=== PATIENT | female | born 2000 | race Caucasian/White ===

== ENCOUNTER 2022-11-21 00:35 | Emergency (ER) | payer OTHER ==
[~2022-11-21] VITALS: Ht 157.5 cm; Wt 80.2 kg
[2022-11-21] MEDS ORDERED: SODIUM CHLORIDE 0.9% 1,000 ML IV ONE (01:15)
[2022-11-21 01:16] LABS: CLARITY URINE CLOUDY (CLEAR); COLOR URINE DARK YELLOW (YELLOW); KETONES URINE TRACE (NEGATIVE); LEUKOCYTE ESTERASE URINE TRACE (NEGATIVE); NITRITE URINE NEGATIVE (NEGATIVE); OCCULT BLOOD URINE 3+ (NEGATIVE); PROTEIN URINE 2+ (NEGATIVE); SPECIFIC GRAVITY URINE 1.033 (1.005-1.030)
[2022-11-21 01:40] LABS: BASOPHILS % 0.1 % (0.0-2.0); EOSINOPHILS % 0.2 % (0.0-5.0); HEMATOCRIT. 38.8 % (36.0-48.0); HEMOGLOBIN. 12.5 g/dL (12.0-16.0); LYMPHOCYTES % 22.1 % (20.0-50.0); MEAN CORPUSCULAR HEMOGLOBIN 24.3 pg (28.0-32.0); MEAN CORPUSCULAR VOLUME 75.3 fL (81.0-99.0); MEAN PLATELET VOLUME 8.9 fl (7.4-10.4); MONOCYTES % 10.2 % (2.0-8.0); NEUTROPHILS % 67.4 % (40.0-76.0); PLATELET 270 x1000/uL (130-400); RED BLOOD CELL COUNT 5.16 mill/uL (4.2-5.4); RED CELL DISTRIBUTION WIDTH 17.9 % (11.6-14.6)
[2022-11-21 01:53] LABS: CHLORIDE 105 mEq/L (98-107)
[2022-11-21] MEDS ORDERED: ONDANSETRON HCL 4MG/2ML INJ IV ONE (02:15)
[2022-11-21] MEDS ORDERED: KETOROLAC 30MG/ML VIAL IV ONE (02:45)
[2022-11-21] MEDS ORDERED: POTASSIUM CHLORIDE 20MEQ TABLET SR PO ONE (02:45)
[2022-11-21 04:03] VITALS: BP 116/74
[2022-11-21] MEDS ORDERED: FLUC150T46 MT (04:05)
== END 2022-11-21 05:00 | disposition home or self-care (01) ==
LOC: ER 00:42
DX: R19.7 Diarrhea, unspecified (principal); E86.0 Dehydration; E87.6 Hypokalemia; B37.31 Acute candidiasis of vulva and vagina; J45.909 Unspecified asthma, uncomplicated
CPT/HCPCS: 36415; 80053; 81003; 81025; 83690; 85025; 96361; 96374; 96375; 99284; J1885; J2405; J7030; Z7610

== ENCOUNTER 2023-01-31 23:30 | Emergency (ER) | payer OTHER ==
[~2023-01-31] VITALS: Ht 157.5 cm; Wt 80.4 kg
[~2023-01-31 23:30] MED LIST: FLUC150T46 MT
[2023-01-31 23:52] VITALS: BP 146/68; TEMP 99.4; O2SAT 100
[2023-02-01] MEDS ORDERED: ACET-2708 MT (01:50)
[2023-02-01] MEDS ORDERED: CYCL10TA21 MT (01:50)
[2023-02-01 02:01] VITALS: PULSE 95; RESP 20
== END 2023-02-01 02:01 | disposition home or self-care (01) ==
LOC: ER 23:30
DX: R07.89 Other chest pain (principal); Z68.31 Body mass index [BMI] 31.0-31.9, adult
CPT/HCPCS: 71045; 81025; 99283